=== PATIENT | female | born 1930 | race Caucasian/White ===

== ENCOUNTER 2021-04-27 12:56 | Emergency (ER) | payer OTHER ==
[~2021-04-27] VITALS: Ht 157.5 cm; Wt 68.0 kg
[2021-04-27 13:15] VITALS: BP 112/75
[2021-04-27] MEDS ORDERED: NACL 0.9% 1,000 ML IV ONE ×2 (13:50→17:35)
--- NOTE | 2021-04-27 14:16 | NUR ---
JACIEL SWABBED AND GIVEN TO LAB
[2021-04-27] MEDS ORDERED: cefTRIAXone 1,000 MG VIAL ONE (14:47)
[2021-04-27 14:53] LABS: BASOPHILS % (AUTO) 0.3 % (0.0-2.0); EOSINOPHILS # (AUTO) 0.1 K/uL (0-0.4); EOSINOPHILS % (AUTO) 0.4 % (0.0-4.0); HEMATOCRIT 34.5 % (36-48); LYMPHOCYTES # (AUTO) 1.1 K/uL (2.5-16.5); LYMPHOCYTES % (AUTO) 8.5 % (20.5-51.1); MEAN CORPUSCULAR HEMOGLOBIN 27 pg (27-31); MEAN CORPUSCULAR HGB CONC 32 g/dL (33-37); MONOCYTES # (AUTO) 0.8 K/uL (0.8-1.0); MONOCYTES % (AUTO) 6.1 % (1.7-9.3); NEUTROPHILS # (AUTO) 11.3 K/uL (1.8-7.7); NEUTROPHILS % (AUTO) 84.7 % (42.2-75.2); PLATELET COUNT (AUTO) 271 K/uL (140-450); RED BLOOD CELL COUNT(AUTO) 4.16 MIL/uL (4.20-5.40); RED CELL DISTRIBUTION WIDTH 14.5 % (11.6-13.7); WHITE BLOOD COUNT (AUTO) 13.3 K/uL (4.8-10.8)
[2021-04-27 15:15] LABS: ALBUMIN 2.3 g/dL (3.4-5.0); ASPARTATE AMINOTRANSFERASE 62 U/L (15-37); CARBON DIOXIDE 20.1 mmol/L (21-32); CHLORIDE 103 mmol/L (98-107); CREATININE 1.2 mg/dL (0.6-1.3); GLUCOSE 209 mg/dL (74-106); POTASSIUM 5.1 mmol/L (3.5-5.1); SODIUM SERUM 136 mmol/L (136-145); TOTAL BILIRUBIN 0.6 mg/dL (0.0-1.0); UREA NITROGEN, BLOOD 28 mg/dL (7-18)
--- NOTE | 2021-04-27 15:41 | NUR ---
pt taken to bed 12 from ambulace bay and placed onto fixture repairer fabricator
--- NOTE | 2021-04-27 16:25 | NUR ---
XRAY BEDSIDE WITH PT
--- NOTE | 2021-04-27 17:05 | NUR ---
PT PROVIDED WITH WATER BEDSIDE AND PLACED INTO GOWN
--- NOTE | 2021-04-27 17:05 | NUR ---
89 Y/O F BIBA FROM APARTMENT, PT STATES SHE HAS BEEN FEELING SICK FOR 2 DAYS, C/O SOB AND FATIGUE, ON SCENE PT WAS AT 85% SATURATION, WAS PUT ON 4L NC, NOW SAT 100%. PT STATED SHE IS ALSO FEELING PRESSURE IN HER CHEST THAT IS NON-RADIAITNG. PT DENIES ANY N/V AT THIS MOMENT, BUT FEELS FATIGUE. UPON ASSESSMENT S1/S2 HEARD AND BREATH SOUNDS CLEAR. PT IS TACHYPENIC AT THIS MOMENT. PT IS [place] AND HAS HEARING AIDS IN PLACE PMH: HYPERLIPIDEMIA MED: SIMVISTATIN NKA
[2021-04-27] MEDS ORDERED: AZITHROMYCIN 500 MG in DEXTROSE 5% 250 ML IV ONE (17:35)
--- NOTE | 2021-04-27 17:43 | NUR ---
CONTRAST CT CONSENT SIGNED AND OBTAINED BEDSIDE
--- NOTE | 2021-04-27 17:43 | NUR ---
PHIL GRIDER COLLECTED BEDSIDE AND WALKED OVER TO LAB
--- NOTE | 2021-04-27 17:56 | NUR ---
PT TAKEN TO CT VIA DEVENDRA
--- NOTE | 2021-04-27 18:15 | NUR ---
pt returned to bed [address] [facility]
[2021-04-27] MEDS ORDERED: AZITHROMYCIN 500 MG INJ VIAL IV ONE (18:16)
[2021-04-27 18:25] LABS: PROTHROMBIN TIME 12.7 secs (10.8-13.4)
--- NOTE | 2021-04-27 18:29 | NUR ---
PT PLACED ONTO BEDPAN AND URINE COLLECTED. UA HANDED TO DATA COLLECTION INTERVIEWER [facility]
--- NOTE | 2021-04-27 18:30 | NUR ---
PT PROVIDED WITH CLEAN DIAPER AND CLOTHES PLACED INTO BAG. PT ALSO PROVIDED WITH WARM BLANKET
[2021-04-27 19:01] LABS: APPEARANCE,URINE HAZY (CLEAR); BILIRUBIN,URINE 2+ (NEGATIVE); BLOOD, URINE NEGATIVE (NEGATIVE); COLOR,URINE YELLOW (YELLOW); LEUKOCYTE ESTERASE ,URINE TRACE (NEGATIVE); NITRITE, URINE NEGATIVE (NEGATIVE); UGLUCOSE NEGATIVE (NEGATIVE)
[2021-04-27 19:10] LABS: COARSE GRANULAR CASTS,URINE 0-10 /LPF (None Seen); FINE GRANULAR CASTS,URINE 0-10 /LPF (None Seen)
--- NOTE | 2021-04-27 19:27 | NUR ---
Pt report given to ANGELA RIVAS. Transfer of care at this time.
--- NOTE | 2021-04-27 19:27 | NUR ---
received rejazzy from Yesenia MILLER for continuity of care.
--- NOTE | 2021-04-27 19:34 | NUR ---
patient increased respiration with increased work of breathing, using accessory muscles. patient starting to feel "really awful". patient skin is starting to look cold, and pale. AAOx4. patient is c/o increase pressure on the chest that feels like "an elephant is sitting on my chest". ERMD notified.
[2021-04-27] MEDS ORDERED: ALTEPLASE 100 MG VIAL IV ONE (19:35)
--- NOTE | 2021-04-27 19:41 | NUR ---
patient currently feeling sob and light headed. patient unable to speak. ERMD at bedside.
--- NOTE | 2021-04-27 19:53 | NUR ---
Per ERMD bolus the tPA due to emergent crisis. Was able to bolus and finish the medication
[2021-04-27] MEDS ORDERED: INTUBATION KIT MC ONE (19:55)
--- NOTE | 2021-04-27 19:55 | NUR ---
Started Compressions per ERMD Said orders on patient due to bradycardia, and onset of sudden loss of consciousness.
[2021-04-27] MEDS ORDERED: DOPPLER MC ONE (20:01)
[2021-04-27 20:14] VITALS: BP 115/84
--- NOTE | 2021-04-27 20:19 | NUR ---
TIME OF CALLED AT [address] MCDONNELL.
[2021-04-27] MEDS ORDERED: EPINEPHrine 1 MG/ML AMP ONE (20:28)
--- NOTE | 2021-04-27 21:02 | NUR ---
Called registered representative's office will get a call back from registered representative shortly
--- NOTE | 2021-04-27 21:20 | NUR ---
spoke with wastewater treatment plant operator Jacob Andrews and asked to send patient to the morgue or place in a different room but must leave all therapeutic appliances in place due to long wait of 4hrs-5hrs.
--- NOTE | 2021-04-27 23:12 | NUR ---
Sandy the relationship counselor called and spoke with her. Received a . Sandy reports that she will get back to us soon for further details but has said that the body can be released. she will send someone out for grain picker of the body
--- NOTE | 2021-04-28 00:05 | NUR ---
op called and informed that dispatch will come to pickle pumper the body
--- NOTE | 2021-04-28 01:27 | NUR ---
Romeo Bar a marine firefighter arrived to sweet pickle maker the patient body.
--- NOTE | 2021-04-28 01:32 | NUR ---
called [employer] and gave case #[id number]
--- NOTE | 2021-04-28 02:07 | NUR ---
Line Worker departed with body, received signatures from Romeo Bar
== END 2021-04-27 20:19 ==
LOC: MED 12:56
DX: I26.99 Other pulmonary embolism without acute cor pulmonale (principal); Z20.822 Contact with and (suspected) exposure to COVID-19; D72.829 Elevated white blood cell count, unspecified; D64.9 Anemia, unspecified; I21.4 Non-ST elevation (NSTEMI) myocardial infarction; N39.0 Urinary tract infection, site not specified; I46.9 Cardiac arrest, cause unspecified; J96.02 Acute respiratory failure with hypercapnia; J96.01 Acute respiratory failure with hypoxia; E78.5 Hyperlipidemia, unspecified
CPT/HCPCS: 36415; 36600; 71045; 71275; 80053; 81001; 82803; 83605; 83880; 84484; 85025; 85610; 85730; 87040; 87086; 87426; 93005; 96365; 96367; 96375; 99291; 99292; J0456; J0696; J7030; Q9967; U0003; J0171; J2997; Q0092